=== PATIENT | male | born 1950 | race American Indian/Alaskan Native ===

== ENCOUNTER 2017-02-26 10:09 | Outpatient (CLI) | payer MEDICARE, OTHER ==
--- NOTE | 2017-02-26 16:21 | XRay Report ---
LEFT GREAT TOE THREE VIEWS: 02/26/17 CLINICAL: Toe pain. FINDINGS: Hallux valgus deformity. 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 No erosions. Mild soft tissue swelling at the first MTP joint. The rest of the joint spaces are normal. No fracture or dislocation. Vascular calcifications. IMPRESSION: Mild arthritis and soft tissue swelling at first MTP joint. No specific signs of gout.
== END 2017-02-26 10:10 | disposition home or self-care (01) ==
LOC: SPVIMAG 10:09
PROVIDERS: ATTEND Internal Medicine
DX: M19.072 Primary osteoarthritis, left ankle and foot (principal); M20.62 Acquired deformities of toe(s), unspecified, left foot

== ENCOUNTER 2019-02-09 12:14 | Outpatient (CLI) | payer MEDICARE, OTHER ==
--- NOTE | 2019-02-09 14:10 | XRay Report ---
RIGHT HIP, 2 VIEWS INDICATION: Right hip pain. COMPARISON: None. IMPRESSION: No acute osseous or soft tissue abnormality. Mild osteoarthritic changes are identifi ed. No evidence for osteonecrosis. RIGHT ANKLE, 3 VIEWS INDICATION: Right ankle pain. COMPARISON: None. IMPRESSION: No acute osseous or soft tissue abnormality. No significant DJD. Signer Name: Minh Fernandez Jr, MD Signed: 02/09/2019 2:06 PM Workstation Name: [id number]
== END 2019-02-09 12:15 | disposition home or self-care (01) ==
LOC: SPVIMAG 12:14
PROVIDERS: ATTEND Internal Medicine
DX: M16.11 Unilateral primary osteoarthritis, right hip (principal); M70.71 Other bursitis of hip, right hip; M25.571 Pain in right ankle and joints of right foot

== ENCOUNTER 2019-02-10 11:26 | Outpatient (CLI) | payer MEDICARE, OTHER ==
--- NOTE | 2019-02-10 13:31 | XRay Report ---
RIGHT KNEE, 3 VIEWS INDICATION: RIGHT KNEE PAIN. COMPARISON: None. IMPRESSION: No acute osseous or soft tissue abnormality. No significant DJD. Signer Name: Minh Fernandez Jr, MD Signed: 02/10/2019 1:26 PM Workstation Name: [id number]
== END 2019-02-10 11:27 | disposition home or self-care (01) ==
LOC: SPVIMAG 11:26
PROVIDERS: ATTEND Internal Medicine
DX: M25.661 Stiffness of right knee, not elsewhere classified (principal); M25.562 Pain in left knee